=== PATIENT | male | born 1955 | race Caucasian/White ===

== ENCOUNTER 2017-05-03 11:16 | Outpatient (CLI) | payer MEDICARE ==
[2017-05-03 12:27] LABS: ALT (SGPT) 24 U/L (8-55); AST (SGOT) 18 U/L (5-34); Alkaline Phosphatase 93 U/L (40-150); Anion Gap 13 mmol/L (10-20); BUN (Urea Nitrogen) 20 mg/dL (8.4-25.7); Bilirubin, Total 1.1 mg/dL (0.2-1.2); Calc. Creatinine Clearance 0 mL/min (70-130); Carbon Dioxide 34 mmol/L (23-31); Cardiac Risk 7.5 (Less than 4.5); Chloride 98 mmol/L (98-107); Cholesterol 240 mg/dl (< 200 Desired); Estimated GFR-MDRD Greater than 90; Globulin 2.6 g/dL (2.4-3.5); Glucose 104 mg/dL (80-115); HDL Cholesterol 32 mg/dL (>60 Neg Risk); LDL Cholesterol, Calculated 178 mg/dL; Potassium 4.5 mmol/L (3.5-5.1); Protein, Total 6.6 g/dL (5.8-8.1); Sodium 140 mmol/L (136-145); Triglycerides 152 mg/dL (Less than 150)
== END 2017-05-03 11:17 | disposition home or self-care (01) ==
LOC: BURLAB 11:16
PROVIDERS: ATTEND Internal Medicine Cardiovascular Disease
DX: E78.00 Pure hypercholesterolemia, unspecified (principal)
CPT/HCPCS: 36415; 80053; 80061

== ENCOUNTER 2017-09-02 08:13 | Outpatient (CLI) | payer MEDICARE ==
--- NOTE | 2017-09-02 19:53 | RAD ---
LUMBAR SPINE THREE VIEWS: Date: 09-02-17 FINDINGS: No fracture, dislocation, or area of bony destruction was seen. The disc spaces are normal in height. There are some small osteophytes forming anteriorly near the thoracolumbar junction and laterally, e specially at L2-3. The SI joints showed no acute findings, but may be slightly sclerotic. Gas and fec al material keep them from being seen extremely well. There is calcification in the distal abdominal aorta. IMPRESSION: Mild degenerative changes. No acute findings otherwise. POS: [facility]
== END 2017-09-02 08:14 | disposition home or self-care (01) ==
LOC: BURRAD 08:13
PROVIDERS: ATTEND Physician Assistant
DX: M54.5 Low back pain (principal); G57.93 Unspecified mononeuropathy of bilateral lower limbs; M47.896 Other spondylosis, lumbar region; Z98.890 Other specified postprocedural states
CPT/HCPCS: 72100

== ENCOUNTER 2024-03-01 17:07 | Outpatient (CLI) | payer MEDICARE | END 2024-03-01 17:08 | disposition home or self-care (01) | LOC: BURRAD 17:07 | PROVIDERS: ATTEND Physician Assistant | DX: M25.462 Effusion, left knee (principal); Z91.81 History of falling ==